=== PATIENT | male | born 1945 | race Caucasian/White ===

== ENCOUNTER 2019-05-08 17:27 | Emergency (ER) | payer OTHER ==
[2019-05-08 17:43] VITALS: TEMP 97.9
[2019-05-08] MEDS ORDERED: ONDANSETRON HCL 4 MG/2 ML SOL IV ONE (17:52)
[2019-05-08] MEDS ORDERED: PANTOPRAZOLE SODIUM 40 MG VIAL 80 MG in SODIUM CHLORIDE 0.9% 100 ML 80 ML IV ONE (17:54)
[2019-05-08] MEDS ORDERED: SODIUM CHLORIDE 0.9% 1000ML 1,000 ML IV SCH (18:00)
[2019-05-08] MEDS ORDERED: PANTOPRAZOLE SODIUM 40 MG/10 ML PDS ONE (18:02)
[2019-05-08] MEDS ORDERED: ONDANSETRON HCL 4 MG/2 ML SOL ONE (18:02)
[2019-05-08 18:16] LABS: BASOPHILS % (AUTO) 0 % (0-3); EOSINOPHILS % (AUTO) 0 % (0-9); HEMATOCRIT 40 % (39-53); HEMOGLOBIN 13.1 gm/dl (13.5-17.7); LYMPHOCYTES % (AUTO) 5.9 % (10-50); MEAN CORPUSCULAR HEMOGLOBIN 31.9 pg (27.0-32.0); MEAN CORPUSCULAR VOLUME 97 fL (80-100); MONOCYTES % (AUTO) 4.2 % (0-12); NEUTROPHILS % (AUTO) 89.7 % (37-80)
[2019-05-08 18:24] LABS: INR 1.15 (0.87-1.13)
[2019-05-08 18:27] LABS: ALBUMIN 4.1 gm/dl (3.4-5.0); BILIRUBIN,DIRECT 0.3 mg/dl (0.0-0.2); BILIRUBIN,TOTAL 1.3 mg/dl (0.2-1.0); CALCIUM 8.6 mg/dl (8.5-10.1); CARBON DIOXIDE 17.7 mEq/L (21-32); CREATININE 10.28 mg/dl (0.80-1.30); TOTAL PROTEIN 7.9 gm/dl (6.4-8.2)
[2019-05-08] MEDS ORDERED: SODIUM CHLORIDE 0.9% 1000ML 1,000 ML IV ONE (19:51)
[2019-05-08] MEDS ORDERED: PROCHLORPERAZINE EDISYLATE 5 MG/ML SOL IV ONE (20:21)
[2019-05-08] MEDS ORDERED: PROCHLORPERAZINE EDISYLATE 5 MG/ML SOL ONE (20:24)
[2019-05-09 02:30] VITALS: BP 138/67; PULSE 84; RESP 18; O2SAT 93
== END 2019-05-08 22:05 | disposition short-term general hospital (02) | DRG 699 ==
LOC: ED 17:27
DX: N28.9 Disorder of kidney and ureter, unspecified (principal); K92.2 Gastrointestinal hemorrhage, unspecified; R11.2 Nausea with vomiting, unspecified; R19.7 Diarrhea, unspecified; E11.9 Type 2 diabetes mellitus without complications; K52.9 Noninfective gastroenteritis and colitis, unspecified; E86.0 Dehydration
CPT/HCPCS: 36415; 71045; 74176; 80048; 80076; 82550; 85025; 85610; 85730; 93005; 96365; 96366; 96374; 96375; 99070; 99284; 99285; J0780; J2405

== ENCOUNTER 2019-06-01 07:49 | Inpatient (IN) | payer OTHER | END 2019-06-03 13:50 | disposition home or self-care (01) | LOC: ED 07:49 → ACUTE CARE 10:47 ==